=== PATIENT | female | born 1995 | race Two or more races ===

== ENCOUNTER 2019-03-27 23:12 | Emergency (ER) | payer BC ==
[~2019-03-27] VITALS: Ht 157.5 cm; Wt 61.7 kg
[2019-03-27] MEDS ORDERED: ONDANSETRON HCL/PF 4 MG/2 ML VIAL IVP ONE (23:30)
[2019-03-27] MEDS ORDERED: IV NS 0.9% 1,000 ML BAG IV ONE (23:30)
--- NOTE | 2019-03-27 23:31 | NUR ---
ADDENDUM: Intravenous End Time Documentation: Normal saline 1 liter (IV-WO) : start time: 2331 PM ; end time: 2431 AM : IV site: LAC # 20 Port # 1
[2019-03-27 23:43] LABS: BASOPHILS # (AUTO) 0.1 /CMM (0.0-0.2); BASOPHILS % (AUTO) 0.4 % (0.0-2.0); EOSINOPHILS % (AUTO) 0.2 % (0.0-6.0); HEMATOCRIT 46 % (33-45); HEMOGLOBIN 15.1 g/dL (11.5-14.8); LYMPHOCYTES # (AUTO) 1.1 /CMM (0.8-4.8); MEAN CORPUSCULAR HGB CONC 33 g/dl (31.0-36.0); MEAN CORPUSCULAR VOLUME 93 fL (82-100); MONOCYTES # (AUTO) 0.8 /CMM (0.1-1.30); MONOCYTES % (AUTO) 3.5 % (2.0-12.0); NEUTROPHILS # (AUTO) 20.3 /CMM (1.8-8.9); NEUTROPHILS % (AUTO) 90.9 % (43.0-81.0); PLATELET COUNT (AUTO) 286 /CMM (150-450); RED BLOOD CELL COUNT(AUTO) 4.88 MIL/uL (4.0-5.2); WHITE BLOOD COUNT (AUTO) 22.3 K/uL (4.3-11.0)
[2019-03-27] MEDS ORDERED: ONDANSETRON HCL/PF 4 MG/2 ML VIAL ONE (23:53)
[2019-03-28 00:01] LABS: CALCIUM, SERUM 8.5 mg/dL (8.5-10.1); CREATININE 0.7 mg/dL (0.6-1.3)
[2019-03-28 00:05] LABS: ALBUMIN 3.8 g/dL (3.4-5.0); BILIRUBIN,DIRECT 0.1 mg/dL (0.0-0.2); BILIRUBIN,TOTAL 0.6 mg/dL (0.2-1.0); TOTAL PROTEIN, SERUM 6.9 g/dL (6.4-8.2)
--- NOTE | 2019-03-28 00:22 | NUR ---
[place] FROM HOME TO ER BED 3. AAOX4. NO RESP DISTRESS NOTED, BREATHING EVEN ADN UNLABORED. AMBULATORY. BROUGHT IN FOR SYNCOPAL EPISODE. PT REPORTS THAT SHE WAS L YI DOWN IN BED STOODF UP TO GO TO THE BATHROOM AND THAT WAS THE LAST THING SHE REMEMEBERED. SHE REPORTS, IT WAS HER SISTER WHO HEARD THAT SHE FELL. HER REPORTS THAT SHE MIGHT HAVE HIT HER HEAD BECAUSE SHE HAS PAIN ON THE RIGHT SIDE OF THE HEAD. ORTHOSTATIC BP DONE - +ORTHOSTATIC HYPOTENSION, MADE AWARE. MD WAS AT BEDSIDE FOR EVAL. ORDERS RECEIVED NOTED AND CARRIED OUT. IV LINE OBTAINED ON THE L AC 20G. BLOOD DRAWNA DN GIVEN TO MANAGER CONCRETE AT BEDSIDE. EKG DONE AT BEDSIDE WELL.
--- NOTE | 2019-03-28 01:24 | NUR ---
Patient discharged to home in stable condition. Written and verbal after care instructions given. Patient verbalizes understanding of instruction.IV removed. Catheter intact and site benign. Pressure and 4x4 applied to site. No bleeding noted. Pt ambulatory with a steady gait
[2019-03-28 01:32] VITALS: BP 112/70
== END 2019-03-28 01:33 | disposition home or self-care (01) ==
LOC: ER 23:14
DX: R55 Syncope and collapse (principal); A05.9 Bacterial foodborne intoxication, unspecified
CPT/HCPCS: 36415; 80048; 80076; 83690; 85025; 93005; 96361; 96374; 99284; J2405; J7030

== ENCOUNTER 2019-03-29 02:05 | Emergency (ER) | payer BC, OTHER ==
[~2019-03-29] VITALS: Ht 157.5 cm; Wt 60.8 kg
--- NOTE | 2019-03-29 02:28 | NUR ---
PT BIB [facility]ILY [facility] C/O PALPITATION AND TINGLING SENSATION ON L THUMB AND FEET X 30 MIN. PT AAOX4, NO ACUTE DISTRESS NOTED. PT CONNECTED TO THE TURF MANAGER AND POX
[2019-03-29] MEDS ORDERED: LORAZEPAM 1 MG TABLET ONE (03:59)
[2019-03-29] MEDS ORDERED: LORAZEPAM 1 MG TABLET PO ONE (04:00)
[2019-03-29 04:10] VITALS: BP 117/84
--- NOTE | 2019-03-29 04:10 | NUR ---
Patient discharged to home in stable condition. Written and verbal after care instructions given. Patient verbalizes understanding of instruction.
== END 2019-03-29 04:11 | disposition home or self-care (01) ==
LOC: ER 02:08
DX: F41.9 Anxiety disorder, unspecified (principal)